=== PATIENT | male | born 1980 | race Caucasian/White ===

== ENCOUNTER 2017-11-20 12:34 | Day surgery (SDC) | payer MEDICAID, OTHER ==
[2017-11-20] MEDS ORDERED: PROPOFOL 60 ML (14:18)
[2017-11-20] MEDS ORDERED: LIDOCAINE 2% (SDV) 5 ML INJ (14:18)
== END 2017-11-20 16:38 | disposition home or self-care (01) ==
LOC: GIL 12:34
DX: K44.9 Diaphragmatic hernia without obstruction or gangrene (principal); K21.9 Gastro-esophageal reflux disease without esophagitis; K29.70 Gastritis, unspecified, without bleeding; K57.90 Diverticulosis of intestine, part unspecified, without perforation or abscess without bleeding; K64.8 Other hemorrhoids
CPT/HCPCS: 43239; 87081; 88305